=== PATIENT | female | born 1950 | race Caucasian/White ===

== ENCOUNTER 2016-09-28 10:06 | Outpatient (CLI) | payer OTHER | END 2016-09-28 10:07 | disposition home or self-care (01) | DX: Z95.4 Presence of other heart-valve replacement (principal); Z79.899 Other long term (current) drug therapy ==

== ENCOUNTER 2016-10-11 08:24 | Outpatient (CLI) | payer OTHER | END 2016-10-11 08:25 | disposition home or self-care (01) | DX: I77.810 Thoracic aortic ectasia (principal); Z95.2 Presence of prosthetic heart valve; I48.0 Paroxysmal atrial fibrillation; I51.7 Cardiomegaly ==

== ENCOUNTER 2016-10-28 09:38 | Outpatient (CLI) | payer OTHER | END 2016-10-28 09:39 | disposition home or self-care (01) | DX: Z79.899 Other long term (current) drug therapy (principal); Z95.4 Presence of other heart-valve replacement ==

== ENCOUNTER 2016-11-25 08:30 | Outpatient (CLI) | payer OTHER | END 2016-11-25 08:31 | disposition home or self-care (01) | DX: Z79.899 Other long term (current) drug therapy (principal); Z95.4 Presence of other heart-valve replacement ==

== ENCOUNTER 2016-12-26 09:37 | Outpatient (CLI) | payer OTHER | END 2016-12-26 09:38 | disposition home or self-care (01) | DX: Z95.4 Presence of other heart-valve replacement (principal); Z79.899 Other long term (current) drug therapy ==

== ENCOUNTER 2017-01-25 10:13 | Outpatient (CLI) | payer MEDICARE | END 2017-01-25 10:14 | disposition home or self-care (01) | LOC: LAB 10:13 | PROVIDERS: ATTEND Internal Medicine Cardiovascular Disease | DX: Z95.4 Presence of other heart-valve replacement (principal) | CPT/HCPCS: 85610 ==

== ENCOUNTER 2017-01-25 10:24 | Outpatient (CLI) | payer MEDICARE ==
--- NOTE | 2017-01-26 14:31 | Mammography Report ---
REVISED: THIS REPORT WAS ORIGINALLY SIGNED ON 01/27/2017 @ 2318 ORDERS LINKED ON 02/02/2017 DIGITAL BILATERAL SCREENING MAMMOGRAM: 01/25/2017 CLINICAL HISTORY: A 67-year-old female in for diagnostic mammogram. Patient has clear right nipple discharge. In the past, patient had bloody nipple discharge approximately 4 years ago. This was worked up with mammogram, ultrasound, and MRI. These studies were negative. The right nipple discharge disappeared spontaneously. Patient's family history indicates no breast cancer. Patient has had no breast surgeries. TECHNIQUE: Craniocaudad and oblique lateral views of each breast were obtained with [employer] Full Field digital mammography. To compliment the exam, mediolateral view of the right breast was done as well as a magnification view of the right subareolar region. FINDINGS: Breasts are almost entirely composed of fat. Scattered benign vascular calcification is noted in the breasts. Extending from the right subareolar region are mildly prominent ducts suggesting mild tubular ectasia. No definite mass is detected. As compared to preceding exam, mildly prominent ducts first appeared in the right subareolar region as far back as 2011 and has shown mild progression since the 2012 exam. Recommend right breast ultrasound to compliment the present study. RIGHT BREAST ULTRASOUND Right breast ultrasound demonstrates a dilated duct extending from the right breast subareolar region into the anterior aspect of the breast at the 3-4 o' clock position. This duct extends over a length of 2.1 cm. No mass is detected in the duct. Debris is noted in the duct right at the level of the nipple with fluid containing debris moving to and for within the terminal portion of the duct at the level of the nipple. No definite mass is detected within the duct. Although no mass was noted within the dilated duct on ultrasound, additional studies including a bilateral breast MRI and if negative, a right ductogram are recommended for further evaluation. These studies can show abnormalities that could potentially produce clinical symptoms that are not demonstrable on mammography or ultrasound. IMPRESSION: A 2 CM IN LENGTH DILATED DUCT IS SEEN EXTENDING FROM THE NIPPLE INTO THE ANTERIOR ASPECT OF THE MEDIAL RIGHT BREAST AT THE 3 O'CLOCK POSITION. WITHIN THIS DUCT IS NOTED FLUID MOVING TO AND FRO BUT NO DEFINITE INTRADUCTAL MASS WAS NOTED. FINDINGS ARE NONSPECIFIC. RECOMMEND ADDITIONAL STUDIES INCLUDING BILATERAL BREAST MRI AND IF NEGATIVE, RIGHT DUCTOGRAM FOR FURTHER EVALUATION. BIRADS 0 - INCOMPLETE. ADDITIONAL IMAGING STUDIES RECOMMENDED. COMMENT: Dr. Link informed the patient of the findings and his recommendations of additional studies including bilateral breast MRI and if negative, right ductogram. STANDARD QUALIFYING STATEMENTS 1. This examination was reviewed with the aid of Computer-Aided Detection (CAD). 2. A negative or benign imaging report should not delay biopsy if clinically suspicious findings are present. Consider surgical consultation if warranted. More than 5% of cancers are not identified by imaging. 3. Dense breasts may obscure an underlying neoplasm. MTDD
== END 2017-01-25 10:25 | disposition home or self-care (01) ==
LOC: DI 10:24
PROVIDERS: ATTEND Surgery
DX: R92.2 Inconclusive mammogram (principal)
CPT/HCPCS: 76642; G0204; 77066; 85610

== ENCOUNTER 2017-02-21 07:43 | Outpatient (CLI) | payer MEDICARE ==
[2017-02-21 08:18] LABS: CREATININE 0.8 mg/dL (0.4-1.0)
== END 2017-02-21 07:44 | disposition home or self-care (01) ==
LOC: LAB 07:43
PROVIDERS: ATTEND Internal Medicine Cardiovascular Disease
DX: Z95.4 Presence of other heart-valve replacement (principal)
CPT/HCPCS: 36415; 82565; 85610

== ENCOUNTER 2017-03-14 13:10 | Outpatient (CLI) | payer MEDICARE | END 2017-03-14 13:11 | disposition home or self-care (01) | DX: Z95.4 Presence of other heart-valve replacement (principal) ==

== ENCOUNTER 2017-04-11 09:16 | Outpatient (CLI) | payer MEDICARE | END 2017-04-11 09:17 | disposition home or self-care (01) | LOC: LAB 09:16 | PROVIDERS: ATTEND Internal Medicine Cardiovascular Disease | DX: Z95.4 Presence of other heart-valve replacement (principal) | CPT/HCPCS: 85610 ==

== ENCOUNTER 2017-04-25 08:20 | Outpatient (CLI) | payer MEDICARE | END 2017-04-25 08:21 | disposition home or self-care (01) | LOC: LAB 08:20 | PROVIDERS: ATTEND Internal Medicine Cardiovascular Disease | DX: Z95.4 Presence of other heart-valve replacement (principal) | CPT/HCPCS: 85610 ==

== ENCOUNTER 2017-05-19 08:32 | Outpatient (CLI) | payer MEDICARE | END 2017-05-19 08:33 | disposition home or self-care (01) | LOC: LAB 08:32 | PROVIDERS: ATTEND Internal Medicine Cardiovascular Disease | DX: Z95.4 Presence of other heart-valve replacement (principal); Z79.899 Other long term (current) drug therapy | CPT/HCPCS: 85610 ==

== ENCOUNTER 2017-06-19 08:20 | Outpatient (CLI) | payer MEDICARE | END 2017-06-19 08:21 | disposition home or self-care (01) | LOC: LAB 08:20 | PROVIDERS: ATTEND Internal Medicine Cardiovascular Disease | DX: Z95.4 Presence of other heart-valve replacement (principal); Z79.899 Other long term (current) drug therapy | CPT/HCPCS: 85610 ==

== ENCOUNTER 2017-07-17 09:02 | Outpatient (CLI) | payer MEDICARE | END 2017-07-17 09:03 | disposition home or self-care (01) | LOC: LAB 09:02 | PROVIDERS: ATTEND Internal Medicine Cardiovascular Disease | DX: Z95.4 Presence of other heart-valve replacement (principal); Z79.899 Other long term (current) drug therapy | CPT/HCPCS: 85610 ==

== ENCOUNTER 2017-08-14 08:39 | Outpatient (CLI) | payer MEDICARE | END 2017-08-14 08:40 | disposition home or self-care (01) | LOC: LAB 08:39 | PROVIDERS: ATTEND Internal Medicine Cardiovascular Disease | DX: Z95.4 Presence of other heart-valve replacement (principal); Z79.899 Other long term (current) drug therapy | CPT/HCPCS: 85610 ==

== ENCOUNTER 2017-09-06 08:00 | Outpatient (CLI) | payer MEDICARE | END 2017-09-06 08:01 | disposition home or self-care (01) | LOC: LAB 08:00 | PROVIDERS: ATTEND Internal Medicine Cardiovascular Disease | DX: Z95.4 Presence of other heart-valve replacement (principal); Z79.899 Other long term (current) drug therapy | CPT/HCPCS: 85610 ==

== ENCOUNTER 2017-10-05 10:19 | Outpatient (CLI) | payer MEDICARE | END 2017-10-05 10:20 | disposition home or self-care (01) | LOC: LAB 10:19 | PROVIDERS: ATTEND Internal Medicine Cardiovascular Disease | DX: Z95.4 Presence of other heart-valve replacement (principal); Z79.899 Other long term (current) drug therapy | CPT/HCPCS: 85610 ==

== ENCOUNTER 2017-10-19 09:24 | Outpatient (CLI) | payer MEDICARE | END 2017-10-19 09:25 | disposition home or self-care (01) | LOC: LAB 09:24 | PROVIDERS: ATTEND Internal Medicine Cardiovascular Disease | DX: Z95.4 Presence of other heart-valve replacement (principal); Z79.899 Other long term (current) drug therapy | CPT/HCPCS: 85610 ==

== ENCOUNTER 2017-11-09 10:53 | Outpatient (CLI) | payer MEDICARE | END 2017-11-09 10:54 | disposition home or self-care (01) | LOC: LAB 10:53 | PROVIDERS: ATTEND Internal Medicine Cardiovascular Disease | DX: Z95.4 Presence of other heart-valve replacement (principal); Z79.899 Other long term (current) drug therapy | CPT/HCPCS: 85610 ==

== ENCOUNTER 2017-12-11 08:42 | Outpatient (CLI) | payer MEDICARE | END 2017-12-11 08:43 | disposition home or self-care (01) | LOC: LAB 08:42 | PROVIDERS: ATTEND Internal Medicine Cardiovascular Disease | DX: Z95.4 Presence of other heart-valve replacement (principal); Z79.899 Other long term (current) drug therapy | CPT/HCPCS: 85610 ==

== ENCOUNTER 2017-12-15 12:44 | Outpatient (CLI) | payer MEDICARE | END 2017-12-15 12:45 | disposition home or self-care (01) | LOC: DI 12:44 | PROVIDERS: ATTEND Internal Medicine Cardiovascular Disease | DX: I77.810 Thoracic aortic ectasia (principal); I51.7 Cardiomegaly; Z95.4 Presence of other heart-valve replacement | CPT/HCPCS: 93306 ==

== ENCOUNTER 2018-01-08 08:12 | Outpatient (CLI) | payer MEDICARE | END 2018-01-08 08:13 | disposition home or self-care (01) | LOC: LAB 08:12 | PROVIDERS: ATTEND Internal Medicine Cardiovascular Disease | DX: Z95.4 Presence of other heart-valve replacement (principal); Z79.899 Other long term (current) drug therapy | CPT/HCPCS: 85610 ==

== ENCOUNTER 2018-02-05 08:30 | Outpatient (CLI) | payer MEDICARE | END 2018-02-05 08:31 | disposition home or self-care (01) | LOC: LAB 08:30 | PROVIDERS: ATTEND Internal Medicine Cardiovascular Disease | DX: Z95.4 Presence of other heart-valve replacement (principal); Z79.899 Other long term (current) drug therapy | CPT/HCPCS: 85610 ==

== ENCOUNTER 2018-03-05 09:14 | Outpatient (CLI) | payer MEDICARE | END 2018-03-05 09:15 | disposition home or self-care (01) | LOC: LAB 09:14 | PROVIDERS: ATTEND Internal Medicine Cardiovascular Disease | DX: Z95.4 Presence of other heart-valve replacement (principal); Z79.899 Other long term (current) drug therapy | CPT/HCPCS: 85610 ==

== ENCOUNTER 2018-04-02 08:19 | Outpatient (CLI) | payer MEDICARE | END 2018-04-02 08:20 | disposition home or self-care (01) | LOC: LAB 08:19 | PROVIDERS: ATTEND Internal Medicine Cardiovascular Disease | DX: Z95.4 Presence of other heart-valve replacement (principal); Z79.899 Other long term (current) drug therapy | CPT/HCPCS: 85610 ==

== ENCOUNTER 2018-05-14 07:47 | Outpatient (CLI) | payer MEDICARE | END 2018-05-14 07:48 | disposition home or self-care (01) | LOC: LAB 07:47 | PROVIDERS: ATTEND Internal Medicine Cardiovascular Disease | DX: Z95.4 Presence of other heart-valve replacement (principal); Z79.899 Other long term (current) drug therapy | CPT/HCPCS: 85610 ==

== ENCOUNTER 2018-06-11 08:35 | Outpatient (CLI) | payer MEDICARE | END 2018-06-11 08:36 | disposition home or self-care (01) | LOC: LAB 08:35 | PROVIDERS: ATTEND Internal Medicine Cardiovascular Disease | DX: Z95.4 Presence of other heart-valve replacement (principal); Z79.899 Other long term (current) drug therapy | CPT/HCPCS: 85610 ==

== ENCOUNTER 2018-07-09 08:01 | Outpatient (CLI) | payer MEDICARE | END 2018-07-09 08:02 | disposition home or self-care (01) | LOC: LAB 08:01 | PROVIDERS: ATTEND Internal Medicine Cardiovascular Disease | DX: Z95.4 Presence of other heart-valve replacement (principal); Z79.899 Other long term (current) drug therapy | CPT/HCPCS: 85610 ==

== ENCOUNTER 2018-08-06 07:49 | Outpatient (CLI) | payer MEDICARE | END 2018-08-06 07:50 | disposition home or self-care (01) | LOC: LAB 07:49 | PROVIDERS: ATTEND Internal Medicine Cardiovascular Disease | DX: Z95.4 Presence of other heart-valve replacement (principal); Z79.899 Other long term (current) drug therapy | CPT/HCPCS: 85610 ==

== ENCOUNTER 2018-09-03 08:22 | Outpatient (CLI) | payer MEDICARE | END 2018-09-03 08:23 | disposition home or self-care (01) | LOC: LAB 08:22 | PROVIDERS: ATTEND Internal Medicine Cardiovascular Disease | DX: Z95.4 Presence of other heart-valve replacement (principal); Z79.899 Other long term (current) drug therapy | CPT/HCPCS: 85610 ==

== ENCOUNTER 2018-10-01 09:33 | Outpatient (CLI) | payer MEDICARE | END 2018-10-01 09:34 | disposition home or self-care (01) | LOC: LAB 09:33 | PROVIDERS: ATTEND Internal Medicine Cardiovascular Disease | DX: Z95.4 Presence of other heart-valve replacement (principal); Z79.899 Other long term (current) drug therapy | CPT/HCPCS: 85610 ==

== ENCOUNTER 2018-10-29 09:32 | Outpatient (CLI) | payer MEDICARE | END 2018-10-29 09:33 | disposition home or self-care (01) | LOC: LAB 09:32 | PROVIDERS: ATTEND Internal Medicine Cardiovascular Disease | DX: Z95.4 Presence of other heart-valve replacement (principal); Z79.899 Other long term (current) drug therapy | CPT/HCPCS: 85610 ==

== ENCOUNTER 2018-11-26 09:42 | Outpatient (CLI) | payer MEDICARE | END 2018-11-26 09:43 | disposition home or self-care (01) | LOC: LAB 09:42 | PROVIDERS: ATTEND Internal Medicine Cardiovascular Disease | DX: Z51.81 Encounter for therapeutic drug level monitoring (principal); Z95.4 Presence of other heart-valve replacement; Z79.899 Other long term (current) drug therapy | CPT/HCPCS: 85610 ==

== ENCOUNTER 2018-12-14 08:47 | Outpatient (CLI) | payer MEDICARE ==
--- NOTE | 2018-12-14 15:06 | Mammography Report ---
Reason: CALCIFICATION Procedure Date: 12/14/2018 Accession Number: [id number] / [id number] Procedure: [facility] - Diagnostic Dig Bilat CPT Code: FULL RESULT: EXAM: Diagnostic Dig Bilat DATE: 12/14/2018 10:55 AM CLINICAL HISTORY: Diagnostic examination. Follow-up of calcifications. TECHNIQUE: (B) - Bilateral CC and MLO views were obtained. Bilateral MLO views as well as a cleavage view were obtained. COMPARISON: 01/25/2017 through 08/27/2012. Additional Limited comparison is made to the 2018 mammogram due to technical factors. PARENCHYMAL PATTERN: (A) - The breast(s) demonstrate(s) scattered fibroglandular densities. FINDINGS: Rodlike calcifications in a secretory pattern are again demonstrated, increasing over time similar in extent to 2018 and probably benign. There are also stable nodules in the right breast, long-term stability typically benign. Coarse typically benign calcifications are also seen. There are no suspicious masses, calcifications, or areas of distortion. IMPRESSION: Probably Benign. BI-RADS category 3. RECOMMENDATION: (6MOS) - Recommend 6 month follow-up exam. Bilateral diagnostic mammography. BI-RADS CATEGORY: (3) - Probably Benign. STANDARD QUALIFYING STATEMENTS: 1. This examination was not reviewed with the aid of Computer-Aided Detection (CAD). 2. A negative or benign imaging report should not preclude biopsy if clinically suspicious findings are present. 3. Dense breasts may obscure an underlying neoplasm. 4. This examination was reviewed with the aid of 3D breast imaging (tomosynthesis).
== END 2018-12-14 08:48 | disposition home or self-care (01) ==
LOC: DI 08:47
PROVIDERS: ATTEND Internal Medicine
DX: R92.1 Mammographic calcification found on diagnostic imaging of breast (principal)
CPT/HCPCS: 77066

== ENCOUNTER 2018-12-24 10:23 | Outpatient (CLI) | payer MEDICARE | END 2018-12-24 10:24 | disposition home or self-care (01) | LOC: LAB 10:23 | PROVIDERS: ATTEND Internal Medicine Cardiovascular Disease | DX: Z95.4 Presence of other heart-valve replacement (principal); Z79.899 Other long term (current) drug therapy | CPT/HCPCS: 85610 ==

== ENCOUNTER 2019-01-21 09:39 | Outpatient (CLI) | payer MEDICARE | END 2019-01-21 09:40 | disposition home or self-care (01) | LOC: LAB 09:39 | PROVIDERS: ATTEND Internal Medicine Cardiovascular Disease | DX: Z95.4 Presence of other heart-valve replacement (principal); Z79.899 Other long term (current) drug therapy | CPT/HCPCS: 85610 ==

== ENCOUNTER 2019-02-18 10:15 | Outpatient (CLI) | payer MEDICARE | END 2019-02-18 10:16 | disposition home or self-care (01) | LOC: LAB 10:15 | PROVIDERS: ATTEND Internal Medicine Cardiovascular Disease | DX: Z95.4 Presence of other heart-valve replacement (principal); Z79.899 Other long term (current) drug therapy | CPT/HCPCS: 85610 ==

== ENCOUNTER 2019-03-18 08:07 | Outpatient (CLI) | payer MEDICARE | END 2019-03-18 08:08 | disposition home or self-care (01) | LOC: LAB 08:07 | PROVIDERS: ATTEND Internal Medicine Cardiovascular Disease | DX: Z95.4 Presence of other heart-valve replacement (principal); Z79.899 Other long term (current) drug therapy | CPT/HCPCS: 85610 ==

== ENCOUNTER 2019-04-16 08:28 | Outpatient (CLI) | payer MEDICARE | END 2019-04-16 08:29 | disposition home or self-care (01) | LOC: LAB 08:28 | PROVIDERS: ATTEND Internal Medicine Cardiovascular Disease | DX: Z95.4 Presence of other heart-valve replacement (principal); Z79.899 Other long term (current) drug therapy | CPT/HCPCS: 85610 ==

== ENCOUNTER 2019-05-14 08:56 | Outpatient (CLI) | payer MEDICARE | END 2019-05-14 08:57 | disposition home or self-care (01) | LOC: LAB 08:56 | PROVIDERS: ATTEND Internal Medicine Cardiovascular Disease | DX: Z95.4 Presence of other heart-valve replacement (principal); Z79.899 Other long term (current) drug therapy | CPT/HCPCS: 85610 ==

== ENCOUNTER 2019-06-11 08:53 | Outpatient (CLI) | payer MEDICARE | END 2019-06-11 08:54 | disposition home or self-care (01) | LOC: LAB 08:53 | PROVIDERS: ATTEND Internal Medicine Cardiovascular Disease | DX: Z95.4 Presence of other heart-valve replacement (principal); Z79.899 Other long term (current) drug therapy | CPT/HCPCS: 85610 ==

== ENCOUNTER 2019-06-25 10:33 | Outpatient (CLI) | payer MEDICARE | END 2019-06-25 10:34 | disposition home or self-care (01) | LOC: LAB 10:33 | PROVIDERS: ATTEND Internal Medicine Cardiovascular Disease | DX: Z95.4 Presence of other heart-valve replacement (principal); Z79.899 Other long term (current) drug therapy | CPT/HCPCS: 85610 ==

== ENCOUNTER 2019-06-26 08:33 | Outpatient (CLI) | payer MEDICARE ==
--- NOTE | 2019-06-26 11:16 | Mammography Report ---
Reason: 6 MO F/U - ABN MAMMO Procedure Date: 06/26/2019 Accession Number: [id number] / [id number] Procedure: [facility] - Diagnostic Dig Bilat CPT Code: FULL RESULT: EXAM: Diagnostic Dig Bilat DATE: 06/26/2019 10:02 AM CLINICAL HISTORY: Six-month follow-up bilateral calcifications TECHNIQUE: (B) - Bilateral CC and MLO views were obtained. COMPARISON: 12/14/2018, 05/11/2018, 01/25/2017, 11/23/2015, 04/22/2014, 08/27/2012, 06/24/2011 and 03/23/2010 PARENCHYMAL PATTERN: (F) - The breasts demonstrate diffuse fatty replacement bilaterally. FINDINGS: No significant interval change. Extensive bilateral benign appearing supratentorial calcifications are again appreciated. There are no suspicious masses, calcifications, skin thickening, or areas of distortion. IMPRESSION: Benign findings. BI-RADS category 2. RECOMMENDATION: (ANNUAL) - Recommend routine annual screening mammography. BI-RADS CATEGORY: (2) - Benign Findings. STANDARD QUALIFYING STATEMENTS: 1. This examination was not reviewed with the aid of Computer-Aided Detection (CAD). 2. A negative or benign imaging report should not preclude biopsy if clinically suspicious findings are present. 3. Dense breasts may obscure an underlying neoplasm. 4. This examination was reviewed with the aid of 3D breast imaging (tomosynthesis).
== END 2019-06-26 08:34 | disposition home or self-care (01) ==
LOC: DI 08:33
PROVIDERS: ATTEND Internal Medicine
DX: R92.1 Mammographic calcification found on diagnostic imaging of breast (principal)
CPT/HCPCS: 77066

== ENCOUNTER 2019-07-09 09:17 | Outpatient (CLI) | payer MEDICARE | END 2019-07-09 09:18 | disposition home or self-care (01) | LOC: LAB 09:17 | PROVIDERS: ATTEND Internal Medicine Cardiovascular Disease | DX: Z95.4 Presence of other heart-valve replacement (principal); Z79.899 Other long term (current) drug therapy | CPT/HCPCS: 85610 ==

== ENCOUNTER 2019-08-06 08:56 | Outpatient (CLI) | payer MEDICARE | END 2019-08-06 08:57 | disposition home or self-care (01) | LOC: LAB 08:56 | PROVIDERS: ATTEND Internal Medicine Cardiovascular Disease | DX: Z95.4 Presence of other heart-valve replacement (principal); Z79.899 Other long term (current) drug therapy | CPT/HCPCS: 85610 ==

== ENCOUNTER 2019-09-02 12:16 | Outpatient (CLI) | payer MEDICARE | END 2019-09-02 12:17 | disposition home or self-care (01) | LOC: LAB 12:16 | PROVIDERS: ATTEND Internal Medicine Cardiovascular Disease | DX: Z95.4 Presence of other heart-valve replacement (principal); Z79.899 Other long term (current) drug therapy | CPT/HCPCS: 85610 ==

== ENCOUNTER 2019-09-16 09:17 | Outpatient (CLI) | payer MEDICARE | END 2019-09-16 09:18 | disposition home or self-care (01) | LOC: LAB 09:17 | PROVIDERS: ATTEND Internal Medicine Cardiovascular Disease | DX: Z95.4 Presence of other heart-valve replacement (principal); Z79.899 Other long term (current) drug therapy | CPT/HCPCS: 85610 ==

== ENCOUNTER 2019-09-30 10:10 | Outpatient (CLI) | payer MEDICARE | END 2019-09-30 10:11 | disposition home or self-care (01) | LOC: LAB 10:10 | PROVIDERS: ATTEND Internal Medicine Cardiovascular Disease | DX: Z79.899 Other long term (current) drug therapy (principal); Z95.4 Presence of other heart-valve replacement | CPT/HCPCS: 85610 ==

== ENCOUNTER 2019-10-14 08:22 | Outpatient (CLI) | payer MEDICARE | END 2019-10-14 08:23 | disposition home or self-care (01) | LOC: LAB 08:22 | PROVIDERS: ATTEND Internal Medicine Cardiovascular Disease | DX: Z79.899 Other long term (current) drug therapy (principal); Z95.4 Presence of other heart-valve replacement | CPT/HCPCS: 85610 ==

== ENCOUNTER 2019-10-28 08:45 | Outpatient (CLI) | payer MEDICARE | END 2019-10-28 08:46 | disposition home or self-care (01) | LOC: LAB 08:45 | PROVIDERS: ATTEND Internal Medicine Cardiovascular Disease | DX: Z95.4 Presence of other heart-valve replacement (principal); Z79.899 Other long term (current) drug therapy | CPT/HCPCS: 85610 ==

== ENCOUNTER 2019-11-19 11:54 | Outpatient (CLI) | payer MEDICARE | END 2019-11-19 11:55 | disposition home or self-care (01) | LOC: LAB 11:54 | PROVIDERS: ATTEND Internal Medicine Cardiovascular Disease | DX: Z95.4 Presence of other heart-valve replacement (principal); Z79.899 Other long term (current) drug therapy | CPT/HCPCS: 85610 ==

== ENCOUNTER 2019-12-17 08:30 | Outpatient (CLI) | payer MEDICARE | END 2019-12-17 08:31 | disposition home or self-care (01) | LOC: LAB 08:30 | PROVIDERS: ATTEND Internal Medicine Cardiovascular Disease | DX: Z95.4 Presence of other heart-valve replacement (principal); Z79.899 Other long term (current) drug therapy | CPT/HCPCS: 85610 ==

== ENCOUNTER 2020-01-28 09:35 | Outpatient (CLI) | payer MEDICARE | END 2020-01-28 09:36 | disposition home or self-care (01) | LOC: LAB 09:35 | PROVIDERS: ATTEND Internal Medicine Cardiovascular Disease | DX: Z95.4 Presence of other heart-valve replacement (principal); Z79.899 Other long term (current) drug therapy | CPT/HCPCS: 85610 ==

== ENCOUNTER 2020-02-27 08:49 | Outpatient (CLI) | payer MEDICARE ==
[2020-02-27 09:11] LABS: BASOPHILS % (AUTO) 0.3 %; EOSINOPHILS # (AUTO) 0.1 10^3/uL (0.0-0.7); EOSINOPHILS % (AUTO) 1.1 %; HGB - HEMOGLOBIN 14.9 g/dL (12.0-16.0); LYMPHOCYTES # (AUTO) 1.2 10^3/uL (1.5-3.5); LYMPHOCYTES % (AUTO) 19.2 %; MEAN CORPUSCULAR HEMOGLOBIN 27.7 pg (27.0-31.0); MEAN CORPUSCULAR HGB CONC 32.7 g/dL (32.0-36.0); MEAN CORPUSCULAR VOLUME 84.6 fL (81.0-99.0); MEAN PLATELET VOLUME 8.9 fL (7.9-10.8); MONOCYTES # (AUTO) 0.4 10^3/uL (0.0-1.0); MONOCYTES % (AUTO) 6.7 %; NEUTROPHILS # (AUTO) 4.4 10^3/uL (1.5-6.6); NEUTROPHILS % (AUTO) 72.4 %; PLT - PLATELET COUNT 246 10^3/uL (130-450); RED BLOOD COUNT 5.38 10^6/uL (4.20-5.40); RED CELL DISTRIBUTION WIDTH 14.1 % (12.0-15.0); WHITE BLOOD COUNT 6.1 x10^3/uL (4.8-10.8)
[2020-02-27 09:23] LABS: ALBUMIN 4.4 g/dL (3.2-5.5); ALBUMIN/GLOBULIN RATIO 1.4 (1.0-2.2); ALKALINE PHOSPHATASE 93 IU/L (42-121); ALT ALANINE AMINOTRANSFERASE 39 IU/L (10-60); AST ASPARTATE AMINOTRANSFERASE 42 IU/L (10-42); BILIRUBIN,TOTAL 1.7 mg/dL (0.2-1.0); BUN - BLOOD UREA NITROGEN 25 mg/dL (6-20); CALCIUM 9.8 mg/dL (8.5-10.3); CARBON DIOXIDE - CO2 33 mmol/L (21-32); CHLORIDE 96 mmol/L (101-111); CHOL/HDL RATIO 3.9 (<4.4); CHOLESTEROL 252 mg/dL; CREATININE 1.1 mg/dL (0.4-1.0); GLUCOSE 128 mg/dL (70-100); HDL CHOLESTEROL 65 mg/dL; LDL CHOLESTEROL,CALCULATED 158 mg/dL; LDL/HDL RATIO 2.4 (<4.4); SODIUM 139 mmol/L (135-145); TOTAL PROTEIN 7.5 g/dL (6.7-8.2); VLDL CHOLESTEROL 29 mg/dL
== END 2020-02-27 08:50 | disposition home or self-care (01) ==
LOC: LAB 08:49
PROVIDERS: ATTEND Internal Medicine Cardiovascular Disease
DX: R53.83 Other fatigue (principal); R06.02 Shortness of breath
CPT/HCPCS: 36415; 80053; 80061; 83721; 83880; 84443; 85025

== ENCOUNTER 2020-03-03 10:14 | Outpatient (CLI) | payer MEDICARE | END 2020-03-03 10:15 | disposition home or self-care (01) | LOC: DI 10:14 | PROVIDERS: ATTEND Internal Medicine Cardiovascular Disease | DX: I51.7 Cardiomegaly (principal); Z95.2 Presence of prosthetic heart valve | CPT/HCPCS: 93306 ==

== ENCOUNTER 2020-03-10 11:33 | Outpatient (CLI) | payer MEDICARE | END 2020-03-10 11:34 | disposition home or self-care (01) | LOC: LAB 11:33 | PROVIDERS: ATTEND Internal Medicine | DX: R50.9 Fever, unspecified (principal); R06.00 Dyspnea, unspecified; Z20.828 Contact with and (suspected) exposure to other viral communicable diseases | CPT/HCPCS: 81599 ==

== ENCOUNTER 2020-03-12 08:00 | Outpatient (CLI) | payer MEDICARE ==
[2020-03-12 16:48] LABS: RAPID STREP SCREEN Negative (Negative)
== END 2020-03-12 23:59 | disposition home or self-care (01) ==
LOC: LAB.R 08:00
PROVIDERS: ATTEND Internal Medicine
DX: R07.0 Pain in throat (principal)
CPT/HCPCS: 87070; 87430

== ENCOUNTER 2020-03-12 16:43 | Outpatient (CLI) | payer MEDICARE ==
--- NOTE | 2020-03-12 16:56 | XRAY Report ---
PROCEDURE: Chest 2 View X-Ray INDICATIONS: COUGH,DYSPNEA TECHNIQUE: 2 view(s) of the chest. COMPARISON: None. FINDINGS: Surgical changes and devices: Median sternotomy. Lungs and pleura: No pleural effusions or pneumothorax. Lungs are clear. Mediastinum: Mediastinal contours are normal. Heart size is normal. Bones and chest wall: No suspicious bony abnormalities. Soft tissues appear unremarkable. IMPRESSION: No acute process. Reviewed by: Caity Vicente MD on 03/12/2020 4:55 PM PDT Approved by: Caity Vicente MD on 03/12/2020 4:55 PM PDT Station ID: [id number]
== END 2020-03-12 16:44 | disposition home or self-care (01) ==
LOC: DI 16:43
PROVIDERS: ATTEND Internal Medicine
DX: R05 Cough (principal); R06.00 Dyspnea, unspecified; R07.0 Pain in throat
CPT/HCPCS: 71046; 87070; 87430

== ENCOUNTER 2020-03-17 10:25 | Outpatient (CLI) | payer MEDICARE ==
[2020-03-17 10:58] LABS: CALCIUM 9.6 mg/dL (8.5-10.3); CREATININE 1.3 mg/dL (0.4-1.0)
== END 2020-03-17 10:26 | disposition home or self-care (01) ==
LOC: LAB 10:25
PROVIDERS: ATTEND Internal Medicine Cardiovascular Disease
DX: I10 Essential (primary) hypertension (principal); Z95.4 Presence of other heart-valve replacement; Z79.899 Other long term (current) drug therapy
CPT/HCPCS: 36415; 80048; 85610

== ENCOUNTER 2020-05-12 10:32 | Outpatient (CLI) | payer MEDICARE | END 2020-05-12 10:33 | disposition home or self-care (01) | LOC: LAB 10:32 | PROVIDERS: ATTEND Internal Medicine Cardiovascular Disease | DX: Z95.4 Presence of other heart-valve replacement (principal); Z79.899 Other long term (current) drug therapy | CPT/HCPCS: 85610 ==

== ENCOUNTER 2020-06-09 09:27 | Outpatient (CLI) | payer MEDICARE | END 2020-06-09 09:28 | disposition home or self-care (01) | LOC: LAB 09:27 | PROVIDERS: ATTEND Internal Medicine Cardiovascular Disease | DX: Z95.4 Presence of other heart-valve replacement (principal); Z79.01 Long term (current) use of anticoagulants | CPT/HCPCS: 85610 ==

== ENCOUNTER 2020-07-06 12:25 | Outpatient (CLI) | payer MEDICARE | END 2020-07-06 12:26 | disposition home or self-care (01) | LOC: LAB 12:25 | PROVIDERS: ATTEND Internal Medicine Cardiovascular Disease | DX: Z95.4 Presence of other heart-valve replacement (principal); Z79.899 Other long term (current) drug therapy | CPT/HCPCS: 85610 ==

== ENCOUNTER 2020-07-21 08:22 | Outpatient (CLI) | payer MEDICARE | END 2020-07-21 08:23 | disposition home or self-care (01) | LOC: LAB 08:22 | PROVIDERS: ATTEND Internal Medicine Cardiovascular Disease | DX: Z95.4 Presence of other heart-valve replacement (principal); Z79.899 Other long term (current) drug therapy | CPT/HCPCS: 85610 ==

== ENCOUNTER 2020-08-18 08:34 | Outpatient (CLI) | payer MEDICARE | END 2020-08-18 08:35 | disposition home or self-care (01) | LOC: LAB 08:34 | PROVIDERS: ATTEND Internal Medicine Cardiovascular Disease | DX: Z95.4 Presence of other heart-valve replacement (principal); Z79.899 Other long term (current) drug therapy | CPT/HCPCS: 85610 ==

== ENCOUNTER 2020-09-15 09:19 | Outpatient (CLI) | payer MEDICARE | END 2020-09-15 09:20 | disposition home or self-care (01) | LOC: LAB 09:19 | PROVIDERS: ATTEND Internal Medicine Cardiovascular Disease | DX: Z95.4 Presence of other heart-valve replacement (principal); Z79.01 Long term (current) use of anticoagulants | CPT/HCPCS: 85610 ==

== ENCOUNTER 2020-10-20 08:36 | Outpatient (CLI) | payer MEDICARE | END 2020-10-20 08:37 | disposition home or self-care (01) | LOC: LAB 08:36 | PROVIDERS: ATTEND Internal Medicine Cardiovascular Disease | DX: Z95.4 Presence of other heart-valve replacement (principal); Z79.899 Other long term (current) drug therapy | CPT/HCPCS: 85610 ==

== ENCOUNTER 2020-11-24 08:58 | Outpatient (CLI) | payer MEDICARE | END 2020-11-24 08:59 | disposition home or self-care (01) | LOC: LAB 08:58 | PROVIDERS: ATTEND Internal Medicine Cardiovascular Disease | DX: Z95.4 Presence of other heart-valve replacement (principal); Z79.899 Other long term (current) drug therapy | CPT/HCPCS: 85610 ==

== ENCOUNTER 2020-12-08 08:30 | Outpatient (CLI) | payer MEDICARE | END 2020-12-08 08:31 | disposition home or self-care (01) | LOC: LAB 08:30 | PROVIDERS: ATTEND Internal Medicine Cardiovascular Disease | DX: Z95.4 Presence of other heart-valve replacement (principal); Z79.899 Other long term (current) drug therapy | CPT/HCPCS: 85610 ==

== ENCOUNTER 2020-12-22 08:43 | Outpatient (CLI) | payer MEDICARE | END 2020-12-22 08:44 | disposition home or self-care (01) | LOC: LAB 08:43 | PROVIDERS: ATTEND Internal Medicine Cardiovascular Disease | DX: Z95.4 Presence of other heart-valve replacement (principal); Z79.899 Other long term (current) drug therapy | CPT/HCPCS: 85610 ==

== ENCOUNTER 2021-01-12 08:47 | Outpatient (CLI) | payer MEDICARE | END 2021-01-12 08:48 | disposition home or self-care (01) | LOC: LAB 08:47 | PROVIDERS: ATTEND Internal Medicine Cardiovascular Disease | DX: Z95.4 Presence of other heart-valve replacement (principal); Z79.899 Other long term (current) drug therapy | CPT/HCPCS: 36416; 85610 ==

== ENCOUNTER 2021-02-09 08:20 | Outpatient (CLI) | payer MEDICARE | END 2021-02-09 08:21 | disposition home or self-care (01) | LOC: LAB 08:20 | PROVIDERS: ATTEND Internal Medicine Cardiovascular Disease | DX: Z95.4 Presence of other heart-valve replacement (principal); Z79.899 Other long term (current) drug therapy | CPT/HCPCS: 36416; 85610 ==

== ENCOUNTER 2021-03-09 08:53 | Outpatient (CLI) | payer MEDICARE | END 2021-03-09 08:54 | disposition home or self-care (01) | LOC: LAB 08:53 | PROVIDERS: ATTEND Internal Medicine Cardiovascular Disease | DX: Z95.4 Presence of other heart-valve replacement (principal); Z79.899 Other long term (current) drug therapy | CPT/HCPCS: 36416; 85610 ==

== ENCOUNTER 2021-04-06 08:32 | Outpatient (CLI) | payer MEDICARE | END 2021-04-06 08:33 | disposition home or self-care (01) | LOC: LAB 08:32 | PROVIDERS: ATTEND Internal Medicine Cardiovascular Disease | DX: Z95.4 Presence of other heart-valve replacement (principal); Z79.899 Other long term (current) drug therapy | CPT/HCPCS: 36416; 85610 ==

== ENCOUNTER 2021-05-04 09:12 | Outpatient (CLI) | payer MEDICARE | END 2021-05-04 09:13 | disposition home or self-care (01) | LOC: LAB 09:12 | PROVIDERS: ATTEND Internal Medicine Cardiovascular Disease | DX: Z95.4 Presence of other heart-valve replacement (principal); Z79.899 Other long term (current) drug therapy | CPT/HCPCS: 36416; 85610 ==

== ENCOUNTER 2021-05-18 08:45 | Outpatient (CLI) | payer MEDICARE | END 2021-05-18 08:46 | disposition home or self-care (01) | LOC: LAB 08:45 | PROVIDERS: ATTEND Internal Medicine Cardiovascular Disease | DX: Z95.4 Presence of other heart-valve replacement (principal); Z79.899 Other long term (current) drug therapy | CPT/HCPCS: 36416; 85610 ==

== ENCOUNTER 2021-06-15 09:01 | Outpatient (CLI) | payer MEDICARE | END 2021-06-15 09:02 | disposition home or self-care (01) | LOC: LAB 09:01 | PROVIDERS: ATTEND Internal Medicine Cardiovascular Disease | DX: Z95.4 Presence of other heart-valve replacement (principal); Z79.899 Other long term (current) drug therapy | CPT/HCPCS: 36416; 85610 ==

== ENCOUNTER 2021-07-13 08:45 | Outpatient (CLI) | payer MEDICARE | END 2021-07-13 08:46 | disposition home or self-care (01) | LOC: LAB 08:45 | PROVIDERS: ATTEND Internal Medicine Cardiovascular Disease | DX: Z95.4 Presence of other heart-valve replacement (principal); Z79.899 Other long term (current) drug therapy | CPT/HCPCS: 36416; 85610 ==

== ENCOUNTER 2021-07-27 08:44 | Outpatient (CLI) | payer MEDICARE | END 2021-07-27 08:45 | disposition home or self-care (01) | LOC: LAB 08:44 | PROVIDERS: ATTEND Internal Medicine Cardiovascular Disease | DX: Z95.4 Presence of other heart-valve replacement (principal); Z79.899 Other long term (current) drug therapy | CPT/HCPCS: 36416; 85610 ==

== ENCOUNTER 2021-08-10 12:40 | Outpatient (CLI) | payer MEDICARE | END 2021-08-10 12:41 | disposition home or self-care (01) | LOC: LAB 12:40 | PROVIDERS: ATTEND Internal Medicine Cardiovascular Disease | DX: Z95.4 Presence of other heart-valve replacement (principal); Z79.899 Other long term (current) drug therapy | CPT/HCPCS: 36416; 85610 ==

== ENCOUNTER 2021-09-06 16:46 | Outpatient (CLI) | payer MEDICARE | END 2021-09-06 16:47 | disposition home or self-care (01) | LOC: LAB 16:46 | PROVIDERS: ATTEND Internal Medicine Cardiovascular Disease | DX: Z95.4 Presence of other heart-valve replacement (principal); Z79.899 Other long term (current) drug therapy | CPT/HCPCS: 36416; 85610 ==

== ENCOUNTER 2021-09-22 09:12 | Outpatient (CLI) | payer MEDICARE | END 2021-09-22 09:13 | disposition home or self-care (01) | LOC: LAB 09:12 | PROVIDERS: ATTEND Internal Medicine Cardiovascular Disease | DX: Z95.4 Presence of other heart-valve replacement (principal); Z79.899 Other long term (current) drug therapy | CPT/HCPCS: 36416; 85610 ==

== ENCOUNTER 2021-09-29 09:56 | Outpatient (CLI) | payer MEDICARE | END 2021-09-29 09:57 | disposition home or self-care (01) | LOC: LAB 09:56 | PROVIDERS: ATTEND Internal Medicine Cardiovascular Disease | DX: Z95.4 Presence of other heart-valve replacement (principal); Z79.899 Other long term (current) drug therapy | CPT/HCPCS: 36416; 85610 ==

== ENCOUNTER 2021-10-19 08:51 | Outpatient (CLI) | payer MEDICARE | END 2021-10-19 08:52 | disposition home or self-care (01) | LOC: LAB 08:51 | PROVIDERS: ATTEND Internal Medicine Cardiovascular Disease | DX: Z95.4 Presence of other heart-valve replacement (principal); Z79.899 Other long term (current) drug therapy | CPT/HCPCS: 36416; 85610 ==

== ENCOUNTER 2021-11-08 08:57 | Outpatient (CLI) | payer MEDICARE | END 2021-11-08 08:58 | disposition home or self-care (01) | LOC: LAB 08:57 | PROVIDERS: ATTEND Internal Medicine Cardiovascular Disease | DX: Z79.899 Other long term (current) drug therapy (principal); Z95.4 Presence of other heart-valve replacement | CPT/HCPCS: 36416; 85610 ==

== ENCOUNTER 2021-12-07 15:39 | Outpatient (CLI) | payer MEDICARE | END 2021-12-07 15:40 | disposition home or self-care (01) | LOC: LAB 15:39 | PROVIDERS: ATTEND Internal Medicine Cardiovascular Disease | DX: Z95.4 Presence of other heart-valve replacement (principal); Z79.899 Other long term (current) drug therapy | CPT/HCPCS: 36416; 85610 ==

== ENCOUNTER 2021-12-29 08:45 | Outpatient (CLI) | payer MEDICARE | END 2021-12-29 08:46 | disposition home or self-care (01) | LOC: LAB 08:45 | PROVIDERS: ATTEND Internal Medicine Cardiovascular Disease | DX: Z95.4 Presence of other heart-valve replacement (principal); Z79.899 Other long term (current) drug therapy | CPT/HCPCS: 36416; 85610 ==

== ENCOUNTER 2022-01-05 08:00 | Outpatient (CLI) | payer MEDICARE | END 2022-01-07 13:41 | disposition home or self-care (01) | LOC: LAB 08:00 | PROVIDERS: ATTEND Internal Medicine Cardiovascular Disease | DX: Z95.4 Presence of other heart-valve replacement (principal); Z79.899 Other long term (current) drug therapy | CPT/HCPCS: 36416; 85610 ==

== ENCOUNTER 2022-02-02 09:09 | Outpatient (CLI) | payer MEDICARE | END 2022-02-02 09:10 | disposition home or self-care (01) | LOC: LAB 09:09 | PROVIDERS: ATTEND Internal Medicine Cardiovascular Disease | DX: Z79.899 Other long term (current) drug therapy (principal); Z95.4 Presence of other heart-valve replacement | CPT/HCPCS: 36416; 85610 ==

== ENCOUNTER 2022-03-02 09:19 | Outpatient (CLI) | payer MEDICARE | END 2022-03-02 09:20 | disposition home or self-care (01) | LOC: LAB 09:19 | PROVIDERS: ATTEND Internal Medicine Cardiovascular Disease | DX: Z95.4 Presence of other heart-valve replacement (principal); Z79.899 Other long term (current) drug therapy | CPT/HCPCS: 36416; 85610 ==

== ENCOUNTER 2022-03-29 09:28 | Outpatient (CLI) | payer MEDICARE | END 2022-03-29 09:29 | disposition home or self-care (01) | LOC: LAB 09:28 | PROVIDERS: ATTEND Internal Medicine Cardiovascular Disease | DX: Z95.4 Presence of other heart-valve replacement (principal); Z79.899 Other long term (current) drug therapy | CPT/HCPCS: 36416; 85610 ==

== ENCOUNTER 2022-05-10 14:24 | Outpatient (CLI) | payer MEDICARE | END 2022-05-10 14:25 | disposition home or self-care (01) | LOC: LAB 14:24 | PROVIDERS: ATTEND Internal Medicine Cardiovascular Disease | DX: Z79.899 Other long term (current) drug therapy (principal); Z95.4 Presence of other heart-valve replacement | CPT/HCPCS: 36416; 85610 ==

== ENCOUNTER 2022-05-24 08:20 | Outpatient (CLI) | payer MEDICARE | END 2022-05-24 08:21 | disposition home or self-care (01) | LOC: LAB 08:20 | PROVIDERS: ATTEND Internal Medicine Cardiovascular Disease | DX: Z95.4 Presence of other heart-valve replacement (principal); Z79.899 Other long term (current) drug therapy | CPT/HCPCS: 36416; 85610 ==

== ENCOUNTER 2022-06-15 11:00 | Outpatient (CLI) | payer MEDICARE | END 2022-06-15 11:01 | disposition home or self-care (01) | LOC: LAB 11:00 | PROVIDERS: ATTEND Internal Medicine Cardiovascular Disease | DX: Z79.899 Other long term (current) drug therapy (principal); Z95.4 Presence of other heart-valve replacement | CPT/HCPCS: 36416; 85610 ==

== ENCOUNTER 2022-07-13 09:46 | Outpatient (CLI) | payer MEDICARE | END 2022-07-13 09:47 | disposition home or self-care (01) | LOC: LAB 09:46 | PROVIDERS: ATTEND Internal Medicine Cardiovascular Disease | DX: Z79.899 Other long term (current) drug therapy (principal); Z95.4 Presence of other heart-valve replacement | CPT/HCPCS: 36416; 85610 ==

== ENCOUNTER 2022-08-10 10:09 | Outpatient (CLI) | payer MEDICARE | END 2022-08-10 10:10 | disposition home or self-care (01) | LOC: LAB 10:09 | PROVIDERS: ATTEND Internal Medicine Cardiovascular Disease | DX: Z79.899 Other long term (current) drug therapy (principal); Z95.4 Presence of other heart-valve replacement | CPT/HCPCS: 36416; 85610 ==

== ENCOUNTER 2022-08-23 12:57 | Outpatient (CLI) | payer MEDICARE ==
[2022-08-23 13:33] LABS: HCT - HEMATOCRIT 44.4 % (37.0-47.0); HGB - HEMOGLOBIN 14.1 g/dL (12.0-16.0); MEAN CORPUSCULAR HEMOGLOBIN 27.1 pg (27.0-31.0); MEAN CORPUSCULAR HGB CONC 31.8 g/dL (32.0-36.0); MEAN CORPUSCULAR VOLUME 85.4 fL (81.0-99.0); MEAN PLATELET VOLUME 9.6 fL (7.9-10.8); RED BLOOD COUNT 5.2 10^6/uL (4.20-5.40); RED CELL DISTRIBUTION WIDTH 13.6 % (12.0-15.0); WHITE BLOOD COUNT 5.7 x10^3/uL (4.8-10.8)
== END 2022-08-23 12:58 | disposition home or self-care (01) ==
LOC: LAB 12:57
PROVIDERS: ATTEND Internal Medicine Cardiovascular Disease
DX: I48.0 Paroxysmal atrial fibrillation (principal); D68.69 Other thrombophilia; Z95.4 Presence of other heart-valve replacement; Z79.899 Other long term (current) drug therapy
CPT/HCPCS: 36415; 85027; 85610

== ENCOUNTER 2022-09-07 09:50 | Outpatient (CLI) | payer MEDICARE ==
[2022-09-07 10:06] LABS: HCT - HEMATOCRIT 46.2 % (37.0-47.0); HGB - HEMOGLOBIN 14.4 g/dL (12.0-16.0); MEAN CORPUSCULAR HEMOGLOBIN 27.1 pg (27.0-31.0); MEAN CORPUSCULAR HGB CONC 31.2 g/dL (32.0-36.0); MEAN CORPUSCULAR VOLUME 86.8 fL (81.0-99.0); MEAN PLATELET VOLUME 9.3 fL (7.9-10.8); RED BLOOD COUNT 5.32 10^6/uL (4.20-5.40); RED CELL DISTRIBUTION WIDTH 13.7 % (12.0-15.0); WHITE BLOOD COUNT 5.9 x10^3/uL (4.8-10.8)
== END 2022-09-07 09:51 | disposition home or self-care (01) ==
LOC: LAB 09:50
PROVIDERS: ATTEND Internal Medicine Cardiovascular Disease
DX: I48.0 Paroxysmal atrial fibrillation (principal); Z79.899 Other long term (current) drug therapy; Z95.4 Presence of other heart-valve replacement; D68.69 Other thrombophilia
CPT/HCPCS: 36415; 85027; 85610

== ENCOUNTER 2022-10-05 09:28 | Outpatient (CLI) | payer MEDICARE | END 2022-10-05 09:29 | disposition home or self-care (01) | LOC: LAB 09:28 | PROVIDERS: ATTEND Internal Medicine Cardiovascular Disease | DX: Z79.899 Other long term (current) drug therapy (principal); Z95.4 Presence of other heart-valve replacement | CPT/HCPCS: 36416; 85610 ==

== ENCOUNTER 2022-10-19 09:20 | Outpatient (CLI) | payer MEDICARE | END 2022-10-19 09:21 | disposition home or self-care (01) | LOC: LAB 09:20 | PROVIDERS: ATTEND Internal Medicine Cardiovascular Disease | DX: Z79.899 Other long term (current) drug therapy (principal); Z95.4 Presence of other heart-valve replacement | CPT/HCPCS: 36416; 85610 ==

== ENCOUNTER 2022-11-16 10:26 | Outpatient (CLI) | payer MEDICARE | END 2022-11-16 10:27 | disposition home or self-care (01) | LOC: LAB 10:26 | PROVIDERS: ATTEND Internal Medicine Cardiovascular Disease | DX: Z95.4 Presence of other heart-valve replacement (principal); Z79.899 Other long term (current) drug therapy | CPT/HCPCS: 36416; 85610 ==

== ENCOUNTER 2022-12-13 09:43 | Outpatient (CLI) | payer MEDICARE | END 2022-12-13 09:44 | disposition home or self-care (01) | LOC: LAB 09:43 | PROVIDERS: ATTEND Internal Medicine Cardiovascular Disease | DX: Z95.4 Presence of other heart-valve replacement (principal); Z79.899 Other long term (current) drug therapy | CPT/HCPCS: 36416; 85610 ==

== ENCOUNTER 2022-12-20 10:31 | Outpatient (CLI) | payer MEDICARE | END 2022-12-20 10:32 | disposition home or self-care (01) | LOC: LAB 10:31 | PROVIDERS: ATTEND Internal Medicine Cardiovascular Disease | DX: Z79.899 Other long term (current) drug therapy (principal); Z95.4 Presence of other heart-valve replacement | CPT/HCPCS: 36416; 85610 ==

== ENCOUNTER 2023-01-09 09:53 | Outpatient (CLI) | payer MEDICARE | END 2023-01-09 09:54 | disposition home or self-care (01) | LOC: LAB 09:53 | PROVIDERS: ATTEND Internal Medicine Cardiovascular Disease | DX: Z79.899 Other long term (current) drug therapy (principal); Z95.4 Presence of other heart-valve replacement | CPT/HCPCS: 36416; 85610 ==

== ENCOUNTER 2023-01-23 09:39 | Outpatient (CLI) | payer MEDICARE | END 2023-01-23 09:40 | disposition home or self-care (01) | LOC: LAB 09:39 | PROVIDERS: ATTEND Internal Medicine Cardiovascular Disease | DX: Z79.899 Other long term (current) drug therapy (principal); Z95.4 Presence of other heart-valve replacement | CPT/HCPCS: 36416; 85610 ==

== ENCOUNTER 2023-02-13 09:09 | Outpatient (CLI) | payer MEDICARE | END 2023-02-13 09:10 | disposition home or self-care (01) | LOC: LAB 09:09 | PROVIDERS: ATTEND Internal Medicine Cardiovascular Disease | DX: Z79.899 Other long term (current) drug therapy (principal); Z95.4 Presence of other heart-valve replacement | CPT/HCPCS: 36416; 85610 ==

== ENCOUNTER 2023-03-29 09:50 | Outpatient (CLI) | payer MEDICARE | END 2023-03-29 09:51 | disposition home or self-care (01) | LOC: LAB 09:50 | PROVIDERS: ATTEND Internal Medicine Cardiovascular Disease | DX: Z79.899 Other long term (current) drug therapy (principal); Z95.4 Presence of other heart-valve replacement | CPT/HCPCS: 36416; 85610 ==

== ENCOUNTER 2023-04-19 08:01 | Outpatient (CLI) | payer MEDICARE | END 2023-04-19 08:02 | disposition home or self-care (01) | LOC: LAB 08:01 | PROVIDERS: ATTEND Internal Medicine Cardiovascular Disease | DX: Z79.899 Other long term (current) drug therapy (principal); Z95.4 Presence of other heart-valve replacement | CPT/HCPCS: 36416; 85610 ==

== ENCOUNTER 2023-05-22 08:52 | Outpatient (CLI) | payer MEDICARE | END 2023-05-22 08:53 | disposition home or self-care (01) | LOC: LAB 08:52 | PROVIDERS: ATTEND Internal Medicine Cardiovascular Disease | DX: Z95.4 Presence of other heart-valve replacement (principal); Z79.899 Other long term (current) drug therapy | CPT/HCPCS: 36416; 85610 ==

== ENCOUNTER 2023-06-12 12:31 | Outpatient (CLI) | payer MEDICARE | END 2023-06-12 12:32 | disposition home or self-care (01) | LOC: LAB 12:31 | PROVIDERS: ATTEND Internal Medicine Cardiovascular Disease | DX: Z79.899 Other long term (current) drug therapy (principal); Z95.4 Presence of other heart-valve replacement | CPT/HCPCS: 36416; 85610 ==

== ENCOUNTER 2023-07-10 08:26 | Outpatient (CLI) | payer MEDICARE | END 2023-07-10 08:27 | disposition home or self-care (01) | LOC: LAB 08:26 | PROVIDERS: ATTEND Internal Medicine Cardiovascular Disease | DX: Z79.899 Other long term (current) drug therapy (principal); Z95.4 Presence of other heart-valve replacement | CPT/HCPCS: 36416; 85610 ==

== ENCOUNTER 2023-08-07 08:50 | Outpatient (CLI) | payer MEDICARE | END 2023-08-07 08:51 | disposition home or self-care (01) | LOC: LAB 08:50 | PROVIDERS: ATTEND Internal Medicine Cardiovascular Disease | DX: Z95.4 Presence of other heart-valve replacement (principal); Z79.899 Other long term (current) drug therapy | CPT/HCPCS: 36416; 85610 ==

== ENCOUNTER 2023-09-12 09:12 | Outpatient (CLI) | payer MEDICARE | END 2023-09-12 09:13 | disposition home or self-care (01) | LOC: LAB 09:12 | PROVIDERS: ATTEND Internal Medicine Cardiovascular Disease | DX: Z51.81 Encounter for therapeutic drug level monitoring (principal); Z95.4 Presence of other heart-valve replacement; Z79.899 Other long term (current) drug therapy | CPT/HCPCS: 36416; 85610 ==

== ENCOUNTER 2023-10-09 08:42 | Outpatient (CLI) | payer MEDICARE | END 2023-10-09 08:43 | disposition home or self-care (01) | LOC: LAB 08:42 | PROVIDERS: ATTEND Internal Medicine Cardiovascular Disease | DX: Z51.81 Encounter for therapeutic drug level monitoring (principal); Z95.4 Presence of other heart-valve replacement; Z79.899 Other long term (current) drug therapy | CPT/HCPCS: 36416; 85610 ==

== ENCOUNTER 2023-11-06 08:52 | Outpatient (CLI) | payer MEDICARE | END 2023-11-06 08:53 | disposition home or self-care (01) | LOC: LAB 08:52 | PROVIDERS: ATTEND Internal Medicine Cardiovascular Disease | DX: Z95.4 Presence of other heart-valve replacement (principal); Z79.899 Other long term (current) drug therapy | CPT/HCPCS: 36416; 85610 ==

== ENCOUNTER 2023-12-18 08:33 | Outpatient (CLI) | payer MEDICARE | END 2023-12-18 08:34 | disposition home or self-care (01) | LOC: LAB 08:33 | PROVIDERS: ATTEND Internal Medicine Cardiovascular Disease | DX: Z95.4 Presence of other heart-valve replacement (principal); Z79.899 Other long term (current) drug therapy | CPT/HCPCS: 36416; 85610 ==

== ENCOUNTER 2024-01-22 14:38 | Outpatient (CLI) | payer MEDICARE | END 2024-01-22 14:39 | disposition home or self-care (01) | LOC: DI 14:38 | PROVIDERS: ATTEND Internal Medicine Cardiovascular Disease | DX: I77.810 Thoracic aortic ectasia (principal); Z95.2 Presence of prosthetic heart valve; R00.1 Bradycardia, unspecified; I51.7 Cardiomegaly; Z79.899 Other long term (current) drug therapy | CPT/HCPCS: 36416; 85610; 93307 ==

== ENCOUNTER 2024-02-27 08:47 | Outpatient (CLI) | payer MEDICARE | END 2024-02-27 08:48 | disposition home or self-care (01) | LOC: LAB 08:47 | PROVIDERS: ATTEND Internal Medicine Cardiovascular Disease | DX: Z79.899 Other long term (current) drug therapy (principal); Z95.4 Presence of other heart-valve replacement | CPT/HCPCS: 36416; 85610 ==

== ENCOUNTER 2024-04-10 09:03 | Outpatient (CLI) | payer MEDICARE | END 2024-04-10 09:04 | disposition home or self-care (01) | LOC: LAB 09:03 | PROVIDERS: ATTEND Internal Medicine Cardiovascular Disease | DX: Z51.81 Encounter for therapeutic drug level monitoring (principal); Z95.4 Presence of other heart-valve replacement; Z79.899 Other long term (current) drug therapy | CPT/HCPCS: 36416; 85610 ==

== ENCOUNTER 2024-05-23 08:36 | Outpatient (CLI) | payer MEDICARE | END 2024-05-23 08:37 | disposition home or self-care (01) | LOC: LAB 08:36 | PROVIDERS: ATTEND Internal Medicine Cardiovascular Disease | DX: Z51.81 Encounter for therapeutic drug level monitoring (principal); Z95.4 Presence of other heart-valve replacement; Z79.899 Other long term (current) drug therapy | CPT/HCPCS: 36416; 85610 ==